=== PATIENT | male | born 1945 | race Caucasian/White ===

== ENCOUNTER 2019-04-25 10:37 | Outpatient (CLI) | payer OTHER ==
[2019-04-25 20:00] LABS: HB2 TOTAL 15.9 g/dL; HEMOGLOBIN A1C 0.63 g/dL; HEMOGLOBIN A1C % 5.8 % (4.6-6.2)
== END 2019-04-25 23:59 | disposition home or self-care (01) ==
LOC: LAB.N 10:37
PROVIDERS: ATTEND Family Medicine
DX: R73.03 Prediabetes (principal)
CPT/HCPCS: 36415; 83036

== ENCOUNTER 2019-12-09 14:17 | Outpatient (CLI) | payer MEDICARE, OTHER ==
[2019-12-09 19:33] LABS: H. PYLORIS ANTIGEN STL NEGATIVE (Negative)
== END 2019-12-09 23:59 | disposition home or self-care (01) ==
LOC: LAB.WCP 14:17
PROVIDERS: ATTEND Family Medicine
DX: K52.9 Noninfective gastroenteritis and colitis, unspecified (principal)
CPT/HCPCS: 81599; 82274; 83630; 87045; 87046; 87177; 87209; 87329; 87338; 87493

== ENCOUNTER 2019-12-11 12:32 | Outpatient (CLI) | payer OTHER, MEDICARE ==
[2019-12-11 19:16] LABS: ALBUMIN 4.2 g/dL (3.2-5.5); ALBUMIN/GLOBULIN RATIO 1.4 (1.0-2.2); BILIRUBIN,TOTAL 0.8 mg/dL (0.2-1.0); CALCIUM 9.4 mg/dL (8.5-10.3); CREATININE 0.9 mg/dL (0.6-1.2); TOTAL PROTEIN 7.2 g/dL (6.7-8.2)
== END 2019-12-11 23:59 | disposition home or self-care (01) ==
LOC: LAB.WCP 12:32
PROVIDERS: ATTEND Family Medicine
DX: K52.9 Noninfective gastroenteritis and colitis, unspecified (principal)
CPT/HCPCS: 36415; 80053

== ENCOUNTER 2020-01-09 11:40 | Outpatient (CLI) | payer MEDICARE | END 2020-01-09 23:59 | disposition home or self-care (01) | LOC: LAB.WCP 11:40 | PROVIDERS: ATTEND Physician Assistant | DX: R19.7 Diarrhea, unspecified (principal) | CPT/HCPCS: 81599; 87506 ==

== ENCOUNTER 2020-05-11 10:46 | Outpatient (CLI) | payer OTHER, MEDICARE ==
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
== END 2020-05-11 10:47 | disposition home or self-care (01) ==
LOC: SC 10:46
PROVIDERS: ATTEND Internal Medicine Pulmonary Disease
DX: G47.33 Obstructive sleep apnea (adult) (pediatric) (principal); E66.9 Obesity, unspecified; Z68.32 Body mass index [BMI] 32.0-32.9, adult
CPT/HCPCS: 99203; 99212

== ENCOUNTER 2020-09-13 07:00 | Outpatient (CLI) | payer MEDICARE, OTHER ==
--- NOTE | 2020-09-13 12:39 | XRAY Report ---
PROCEDURE: Neck Soft Tissue INDICATIONS: FOOD IN PHARYNX CAUSING OTHER INJURY TECHNIQUE: 2 views of the neck were acquired. COMPARISON: None FINDINGS: Airway: The airway appears patent. Soft tissues: Prevertebral soft tissues are normal in thickness. The epiglottis and aryepiglottic f olds appear normal. No soft tissue gas. No definitive radiopaque foreign body. Bones: No suspicious bony lesions. Visualized cervical spine is normally aligned. Multilevel degen erative changes are present within the lumbar spine. ORIF of the clavicle and humerus are noted. IMPRESSION: No definitive radiopaque foreign body. Reviewed by: Earlene Elder MD on 09/13/2020 12:37 PM PDT Approved by: Earlene Elder MD on 09/13/2020 12:37 PM PDT Station ID: [id number]
== END 2020-09-13 23:59 | disposition home or self-care (01) ==
LOC: DI.N 07:00
PROVIDERS: ATTEND Physician Assistant Medical
DX: T17.228A Food in pharynx causing other injury, initial encounter (principal)

== ENCOUNTER 2020-10-11 12:55 | Outpatient (CLI) | payer MEDICARE, OTHER | END 2020-10-11 12:56 | disposition home or self-care (01) | LOC: NS 12:55 | PROVIDERS: ATTEND Internal Medicine | DX: Z71.3 Dietary counseling and surveillance (principal); E11.9 Type 2 diabetes mellitus without complications | CPT/HCPCS: 97802 ==

== ENCOUNTER 2020-10-25 13:08 | Outpatient (CLI) | payer MEDICARE, OTHER | END 2020-10-25 13:09 | disposition home or self-care (01) | LOC: NS 13:08 | PROVIDERS: ATTEND Internal Medicine | DX: Z71.3 Dietary counseling and surveillance (principal); E11.9 Type 2 diabetes mellitus without complications | CPT/HCPCS: 97803 ==

== ENCOUNTER 2021-02-18 08:00 | Outpatient (CLI) | payer MEDICARE, OTHER ==
[2021-02-18 18:01] LABS: MICROALBUM/CREATININE RATIO,UR 3.7 ug/mg (<30.0); MICROALBUMIN,URINE 0.6 mg/dL (0-300.0)
[2021-02-18 18:09] LABS: ALT ALANINE AMINOTRANSFERASE 33 IU/L (10-60); BUN - BLOOD UREA NITROGEN 15 mg/dL (6-20); CARBON DIOXIDE - CO2 26 mmol/L (21-32); CHLORIDE 104 mmol/L (101-111); CHOLESTEROL 244 mg/dL; CREATININE 0.8 mg/dL (0.6-1.2); GFR - MDRD 94 (>89); GLUCOSE 123 mg/dL (70-100); HDL CHOLESTEROL 49 mg/dL; LDL CHOLESTEROL,CALCULATED 168 mg/dL; LDL/HDL RATIO 3.4 (<3.6); POTASSIUM 4.1 mmol/L (3.5-5.0); SODIUM 139 mmol/L (135-145); TRIGLYCERIDES 134 mg/dL; VLDL CHOLESTEROL 27 mg/dL
[2021-02-18 20:23] LABS: ESTIMATED AVERAGE GLUCOSE 140 mg/dL (70-100); HEMOGLOBIN A1c% 6.5 % (4.27-6.07)
== END 2021-02-18 23:59 | disposition home or self-care (01) ==
LOC: LAB.WCP 08:00
PROVIDERS: ATTEND Internal Medicine
DX: Z01.84 Encounter for antibody response examination (principal); E11.9 Type 2 diabetes mellitus without complications; E78.5 Hyperlipidemia, unspecified; J06.9 Acute upper respiratory infection, unspecified
CPT/HCPCS: 36415; 80048; 80061; 82043; 82570; 83036; 83721; 84460; 86769

== ENCOUNTER 2021-04-23 08:00 | Outpatient (CLI) | payer MEDICARE, OTHER ==
[2021-04-23 14:26] LABS: H. PYLORIS ANTIGEN STL NEGATIVE (Negative)
== END 2021-04-23 23:59 | disposition home or self-care (01) ==
LOC: LAB.N 08:00
PROVIDERS: ATTEND Internal Medicine
DX: K52.9 Noninfective gastroenteritis and colitis, unspecified (principal)
CPT/HCPCS: 81599; 83993; 87045; 87046; 87329; 87338; 87427; 87449; 87493

== ENCOUNTER 2021-05-07 09:54 | Outpatient (CLI) | payer MEDICARE, OTHER ==
[2021-05-07 13:41] LABS: BASOPHILS # (AUTO) 0.1 10^3/uL (0.0-0.1); BASOPHILS % (AUTO) 1.4 %; EOSINOPHILS # (AUTO) 0.2 10^3/uL (0.0-0.7); EOSINOPHILS % (AUTO) 4.3 %; HCT - HEMATOCRIT 48.9 % (42.0-52.0); HGB - HEMOGLOBIN 15.7 g/dL (14.0-18.0); LYMPHOCYTES # (AUTO) 1.2 10^3/uL (1.5-3.5); LYMPHOCYTES % (AUTO) 32.5 %; MEAN CORPUSCULAR HEMOGLOBIN 30.7 pg (27.0-31.0); MEAN CORPUSCULAR HGB CONC 32.1 g/dL (32.0-36.0); MEAN CORPUSCULAR VOLUME 95.7 fL (80.0-94.0); MEAN PLATELET VOLUME 11.2 fL (7.4-11.4); MONOCYTES # (AUTO) 0.5 10^3/uL (0.0-1.0); MONOCYTES % (AUTO) 13.3 %; NEUTROPHILS # (AUTO) 1.8 10^3/uL (1.5-6.6); PLT - PLATELET COUNT 170 10^3/uL (130-450); RED BLOOD COUNT 5.11 10^6/uL (4.70-6.10); RED CELL DISTRIBUTION WIDTH 13.8 % (12.0-15.0); WHITE BLOOD COUNT 3.7 x10^3/uL (4.8-10.8)
[2021-05-07 14:21] LABS: CREATININE,URINE 154.4 mg/dL; MICROALBUM/CREATININE RATIO,UR 3.9 ug/mg (<30.0); MICROALBUMIN,URINE 0.6 mg/dL (0-300.0)
[2021-05-07 14:23] LABS: ALBUMIN 4.2 g/dL (3.2-5.5); ALBUMIN/GLOBULIN RATIO 1.4 (1.0-2.2); ALKALINE PHOSPHATASE 81 IU/L (42-121); ALT ALANINE AMINOTRANSFERASE 25 IU/L (10-60); AST ASPARTATE AMINOTRANSFERASE 20 IU/L (10-42); BILIRUBIN,TOTAL 1.3 mg/dL (0.2-1.0); BUN - BLOOD UREA NITROGEN 14 mg/dL (6-20); CARBON DIOXIDE - CO2 26 mmol/L (21-32); CHLORIDE 104 mmol/L (101-111); CHOLESTEROL 290 mg/dL; CREATININE 0.9 mg/dL (0.6-1.2); GFR - MDRD 82 (>89); GLUCOSE 120 mg/dL (70-100); HDL CHOLESTEROL 60 mg/dL; LDL CHOLESTEROL,CALCULATED 212 mg/dL; LDL/HDL RATIO 3.5 (<3.6); POTASSIUM 4.3 mmol/L (3.5-5.0); SODIUM 139 mmol/L (135-145); TOTAL PROTEIN 7.2 g/dL (6.7-8.2); TRIGLYCERIDES 89 mg/dL; VLDL CHOLESTEROL 18 mg/dL
[2021-05-07 14:24] LABS: CHOL/HDL RATIO 4.8 (<5.0)
[2021-05-07 14:32] LABS: THYROID STIMULATING HORMONE 1.03 uIU/mL (0.34-5.60)
[2021-05-07 21:06] LABS: ESTIMATED AVERAGE GLUCOSE 114 mg/dL (70-100); HEMOGLOBIN A1c% 5.6 % (4.27-6.07)
== END 2021-05-07 09:55 | disposition home or self-care (01) ==
LOC: LAB.N 09:54
PROVIDERS: ATTEND Internal Medicine
DX: I10 Essential (primary) hypertension (principal); E11.9 Type 2 diabetes mellitus without complications; E55.9 Vitamin D deficiency, unspecified; K52.9 Noninfective gastroenteritis and colitis, unspecified; Z86.79 Personal history of other diseases of the circulatory system
CPT/HCPCS: 36415; 80053; 80061; 82043; 82306; 82570; 83036; 83516; 83721; 84443; 85025

== ENCOUNTER 2021-10-26 10:58 | Outpatient (CLI) | payer MEDICARE, OTHER ==
[2021-10-26 18:01] LABS: ALBUMIN 3.9 g/dL (3.2-5.5); ALBUMIN/GLOBULIN RATIO 1.3 (1.0-2.2); BASOPHILS # (AUTO) 0.1 10^3/uL (0.0-0.1); BILIRUBIN,TOTAL 0.7 mg/dL (0.2-1.0); CALCIUM 9.3 mg/dL (8.5-10.3); EOSINOPHILS # (AUTO) 0.3 10^3/uL (0.0-0.7); EOSINOPHILS % (AUTO) 5.3 %; HCT - HEMATOCRIT 48.2 % (42.0-52.0); HGB - HEMOGLOBIN 15.8 g/dL (14.0-18.0); LYMPHOCYTES # (AUTO) 1.5 10^3/uL (1.5-3.5); LYMPHOCYTES % (AUTO) 28.7 %; MAGNESIUM 1.9 mg/dL (1.7-2.8); MEAN CORPUSCULAR HEMOGLOBIN 30.9 pg (27.0-31.0); MEAN CORPUSCULAR HGB CONC 32.8 g/dL (32.0-36.0); MEAN CORPUSCULAR VOLUME 94.1 fL (80.0-94.0); MEAN PLATELET VOLUME 11.4 fL (7.4-11.4); MONOCYTES # (AUTO) 0.6 10^3/uL (0.0-1.0); MONOCYTES % (AUTO) 12.2 %; NEUTROPHILS # (AUTO) 2.7 10^3/uL (1.5-6.6); NEUTROPHILS % (AUTO) 52.6 %; PLT - PLATELET COUNT 162 10^3/uL (130-450); POTASSIUM 4.3 mmol/L (3.5-5.0); RED BLOOD COUNT 5.12 10^6/uL (4.70-6.10); RED CELL DISTRIBUTION WIDTH 12.9 % (12.0-15.0); TOTAL PROTEIN 6.8 g/dL (6.7-8.2); WHITE BLOOD COUNT 5.1 x10^3/uL (4.8-10.8)
[2021-10-26 18:20] LABS: THYROID STIMULATING HORMONE 0.65 uIU/mL (0.34-5.60)
[2021-10-26 18:21] LABS: FREE T3 3.92 pg/mL (2.5-3.9)
[2021-10-26 18:22] LABS: FREE T4 (FREE THYROXINE) 0.86 ng/dL (0.58-1.64)
== END 2021-10-26 10:59 | disposition home or self-care (01) ==
LOC: LAB.N 10:58
PROVIDERS: ATTEND Physician Assistant
DX: I48.0 Paroxysmal atrial fibrillation (principal); E03.9 Hypothyroidism, unspecified
CPT/HCPCS: 36415; 80053; 83735; 84439; 84443; 84481; 85025

== ENCOUNTER 2022-02-14 13:12 | Outpatient (CLI) | payer MEDICARE, OTHER ==
[2022-02-14 18:55] LABS: CREATININE,URINE 127.5 mg/dL
[2022-02-14 18:56] LABS: MICROALBUMIN,URINE < 0.2 mg/dL (0-300.0)
== END 2022-02-14 13:13 | disposition home or self-care (01) ==
LOC: LAB.N 13:12
PROVIDERS: ATTEND Emergency Medicine
DX: I10 Essential (primary) hypertension (principal); I25.84 Coronary atherosclerosis due to calcified coronary lesion
CPT/HCPCS: 36415; 81599; 82043; 82542; 82570; 83698; 83876; 85384; 86141

== ENCOUNTER 2022-04-12 13:26 | Outpatient (CLI) | payer MEDICARE, OTHER ==
--- NOTE | 2022-04-12 18:22 | XRAY Report ---
PROCEDURE: Finger(s) RT INDICATIONS: R 3RD DIGIT PX TECHNIQUE: AP hand, 2 views of the right third finger(s) acquired. COMPARISON: None FINDINGS: Bones: No fractures or dislocations. No suspicious bony lesions. Soft tissues: No suspicious soft tissue calcifications. IMPRESSION: Normal right third digit. Reviewed by: Sis Chen MD on 04/12/2022 5:21 PM AKMARIMAR Approved by: Sis Chen MD on 04/12/2022 5:21 PM AKMARIMAR Station ID: [id number]
== END 2022-04-12 23:59 | disposition home or self-care (01) ==
LOC: DI.N 13:26
PROVIDERS: ATTEND Nurse Practitioner
DX: M79.644 Pain in right finger(s) (principal)

== ENCOUNTER 2022-05-29 14:16 | Outpatient (CLI) | payer MEDICARE, OTHER ==
[2022-05-29 18:09] LABS: BASOPHILS # (AUTO) 0.1 10^3/uL (0.0-0.1); BASOPHILS % (AUTO) 0.9 %; EOSINOPHILS # (AUTO) 0.2 10^3/uL (0.0-0.7); EOSINOPHILS % (AUTO) 3.4 %; HCT - HEMATOCRIT 49.4 % (42.0-52.0); LYMPHOCYTES # (AUTO) 1.4 10^3/uL (1.5-3.5); LYMPHOCYTES % (AUTO) 26.6 %; MEAN CORPUSCULAR HEMOGLOBIN 30.5 pg (27.0-31.0); MEAN CORPUSCULAR HGB CONC 32.4 g/dL (32.0-36.0); MEAN CORPUSCULAR VOLUME 94.3 fL (80.0-94.0); MEAN PLATELET VOLUME 11.4 fL (7.4-11.4); MONOCYTES # (AUTO) 0.6 10^3/uL (0.0-1.0); MONOCYTES % (AUTO) 11.1 %; NEUTROPHILS # (AUTO) 3.1 10^3/uL (1.5-6.6); NEUTROPHILS % (AUTO) 57.8 %; PLT - PLATELET COUNT 177 10^3/uL (130-450); RED BLOOD COUNT 5.24 10^6/uL (4.70-6.10); RED CELL DISTRIBUTION WIDTH 13.1 % (12.0-15.0); WHITE BLOOD COUNT 5.3 x10^3/uL (4.8-10.8)
[2022-05-29 18:29] LABS: CREATININE,URINE 129.9 mg/dL; MICROALBUM/CREATININE RATIO,UR 2.3 ug/mg (<30.0); MICROALBUMIN,URINE 0.3 mg/dL (0-300.0)
[2022-05-29 18:32] LABS: ALBUMIN 4.3 g/dL (3.2-5.5); ALBUMIN/GLOBULIN RATIO 1.5 (1.0-2.2); ALKALINE PHOSPHATASE 82 IU/L (42-121); ALT ALANINE AMINOTRANSFERASE 22 IU/L (10-60); AST ASPARTATE AMINOTRANSFERASE 20 IU/L (10-42); BILIRUBIN,TOTAL 0.9 mg/dL (0.2-1.0); BUN - BLOOD UREA NITROGEN 16 mg/dL (6-20); CALCIUM 9.5 mg/dL (8.5-10.3); CARBON DIOXIDE - CO2 27 mmol/L (21-32); CHLORIDE 102 mmol/L (101-111); CHOL/HDL RATIO 4.9 (<5.0); CHOLESTEROL 261 mg/dL; CREATININE 0.9 mg/dL (0.6-1.2); GFR - MDRD 82 (>89); GLUCOSE 94 mg/dL (70-100); HDL CHOLESTEROL 53 mg/dL; LDL CHOLESTEROL,CALCULATED 182 mg/dL; LDL/HDL RATIO 3.4 (<3.6); POTASSIUM 4.1 mmol/L (3.5-5.0); SODIUM 138 mmol/L (135-145); TOTAL PROTEIN 7.2 g/dL (6.7-8.2); TRIGLYCERIDES 128 mg/dL; VLDL CHOLESTEROL 26 mg/dL
[2022-05-29 18:38] LABS: THYROID STIMULATING HORMONE 0.36 uIU/mL (0.34-5.60)
[2022-05-29 21:12] LABS: ESTIMATED AVERAGE GLUCOSE 123 mg/dL (70-100); HEMOGLOBIN A1c% 5.9 % (4.27-6.07)
== END 2022-05-29 14:17 | disposition home or self-care (01) ==
LOC: LAB.N 14:16
PROVIDERS: ATTEND Internal Medicine
DX: E78.5 Hyperlipidemia, unspecified (principal); E55.9 Vitamin D deficiency, unspecified; E11.9 Type 2 diabetes mellitus without complications; E03.9 Hypothyroidism, unspecified; I10 Essential (primary) hypertension
CPT/HCPCS: 36415; 80053; 80061; 82043; 82306; 82570; 83036; 83721; 84443; 85025

== ENCOUNTER 2022-09-18 12:49 | Outpatient (CLI) | payer MEDICARE, OTHER ==
[2022-09-18 17:58] LABS: CALCIUM 9.3 mg/dL (8.5-10.3); POTASSIUM 4.2 mmol/L (3.5-5.0)
[2022-09-18 21:45] LABS: ESTIMATED AVERAGE GLUCOSE 120 mg/dL (70-100); HEMOGLOBIN A1c% 5.8 % (4.27-6.07)
== END 2022-09-18 12:50 | disposition home or self-care (01) ==
LOC: LAB.F 12:49
PROVIDERS: ATTEND Internal Medicine
DX: E11.9 Type 2 diabetes mellitus without complications (principal)
CPT/HCPCS: 36415; 80048; 83036

== ENCOUNTER 2022-09-19 17:15 | Outpatient (CLI) | payer MEDICARE, OTHER ==
--- NOTE | 2022-09-20 11:02 | XRAY Report ---
PROCEDURE: Ribs Bilat w/Chest 4 View INDICATIONS: ANTERIOR CHEST WALL PAIN TECHNIQUE: 4 views of the bilateral ribs were acquired, along with a single view chest. COMPARISON: None FINDINGS: Surgical changes and devices: Left clavicular ORIF is present. Hardware is intact without evidence of hardware fracture or periprosthetic lucency to suggest loosening. Bones and chest wall: No fractures or dislocations. No suspicious bony lesions. Overlying soft tis sues appear unremarkable. Lungs and pleura: No pleural effusions or pneumothorax. Lungs appear clear. Mediastinum: Mediastinal contours appear normal. Heart size is normal. IMPRESSION: No visualized acute fracture or dislocation. However, occult injury cannot be excluded. Recommend mary rt interval imaging follow-up in 7-10 days as clinically indicated for additional evaluation. Reviewed by: Earlene Elder MD on 09/20/2022 11:01 AM PDT Approved by: Earlene Elder MD on 09/20/2022 11:01 AM PDT Station ID: [id number]
== END 2022-09-19 17:16 | disposition home or self-care (01) ==
LOC: DI 17:15
PROVIDERS: ATTEND Physician Assistant Medical
DX: R07.89 Other chest pain (principal)

== ENCOUNTER 2022-10-20 14:07 | Outpatient (CLI) | payer MEDICARE, OTHER ==
--- NOTE | 2022-10-20 17:13 | XRAY Report ---
PROCEDURE: Foot 3 View LT INDICATIONS: LT FOOT. Laceration. TECHNIQUE: 3 views of the foot were acquired. COMPARISON: None. FINDINGS: Bones: No acute fracture or dislocation identified. Degenerative changes at the first MTP joint and scattered IP joints. Soft tissues: Thin, approximately 4 mm radiopaque foreign body within the plantar soft tissues, like ly near the base of the second digit. IMPRESSION: No acute bony abnormality. If pain persists with conservative management, consider repeat radiographs in 10-14 days or cross-sectional imaging. Approximately 4 mm radiopaque foreign body at the plantar soft tissues likely at the base of the seco nd digit. Reviewed by: Toñito Keys MD on 10/20/2022 5:12 PM PDT Approved by: Toñito Keys MD on 10/20/2022 5:12 PM PDT Station ID: [id number]
== END 2022-10-20 14:08 | disposition home or self-care (01) ==
LOC: DI 14:07
PROVIDERS: ATTEND Family Medicine
DX: S91.322A Laceration with foreign body, left foot, initial encounter (principal)

== ENCOUNTER 2022-10-30 10:15 | Outpatient (CLI) | payer MEDICARE, OTHER ==
--- NOTE | 2022-10-30 10:57 | XRAY Report ---
PROCEDURE: Foot 3 View RT INDICATIONS: CONTUSION OF RIGHT FOOT TECHNIQUE: 3 views of the foot were acquired. COMPARISON: None. FINDINGS: Bones: There is a mildly displaced and angulated fracture of the proximal aspect of the proximal pha lanx of the second digit. Periarticular osteophyte formation at the first metatarsophalangeal joint a s well as the interphalangeal joints of the digits. No suspicious bony lesions. Soft tissues: No suspicious soft tissue calcifications or masses. IMPRESSION: Second digit fracture. Reviewed by: Jennie Urbina MD on 10/30/2022 10:55 AM PDT Approved by: Jennie Urbina MD on 10/30/2022 10:55 AM PDT Station ID: [id number]
== END 2022-10-30 23:59 | disposition home or self-care (01) ==
LOC: DI.N 10:15
PROVIDERS: ATTEND Family Medicine
DX: S92.511A Displaced fracture of proximal phalanx of right lesser toe(s), initial encounter for closed fracture (principal)

== ENCOUNTER 2022-12-29 10:00 | Outpatient (CLI) | payer MEDICARE, OTHER ==
[2022-12-29 18:00] LABS: BASOPHILS # (AUTO) 0.1 10^3/uL (0.0-0.1); BASOPHILS % (AUTO) 0.9 %; EOSINOPHILS # (AUTO) 0.5 10^3/uL (0.0-0.7); EOSINOPHILS % (AUTO) 9.1 %; HCT - HEMATOCRIT 46.9 % (42.0-52.0); HGB - HEMOGLOBIN 15.3 g/dL (14.0-18.0); LYMPHOCYTES # (AUTO) 1.4 10^3/uL (1.5-3.5); LYMPHOCYTES % (AUTO) 26.3 %; MEAN CORPUSCULAR HEMOGLOBIN 30.4 pg (27.0-31.0); MEAN CORPUSCULAR HGB CONC 32.6 g/dL (32.0-36.0); MEAN CORPUSCULAR VOLUME 93.2 fL (80.0-94.0); MEAN PLATELET VOLUME 11.4 fL (7.4-11.4); MONOCYTES # (AUTO) 0.6 10^3/uL (0.0-1.0); MONOCYTES % (AUTO) 11.8 %; NEUTROPHILS # (AUTO) 2.8 10^3/uL (1.5-6.6); NEUTROPHILS % (AUTO) 51.7 %; PLT - PLATELET COUNT 166 10^3/uL (130-450); RED BLOOD COUNT 5.03 10^6/uL (4.70-6.10); RED CELL DISTRIBUTION WIDTH 13.7 % (12.0-15.0); WHITE BLOOD COUNT 5.4 x10^3/uL (4.8-10.8)
[2022-12-29 18:16] LABS: ALBUMIN/GLOBULIN RATIO 1.2 (1.0-2.2); ALKALINE PHOSPHATASE 77 IU/L (42-121); ALT ALANINE AMINOTRANSFERASE 27 IU/L (10-60); AST ASPARTATE AMINOTRANSFERASE 21 IU/L (10-42); BILIRUBIN,TOTAL 0.7 mg/dL (0.2-1.0); BUN - BLOOD UREA NITROGEN 17 mg/dL (6-20); CALCIUM 9.2 mg/dL (8.5-10.3); CARBON DIOXIDE - CO2 27 mmol/L (21-32); CHLORIDE 107 mmol/L (101-111); CHOL/HDL RATIO 4.1 (<5.0); CHOLESTEROL 259 mg/dL; CREATININE 0.9 mg/dL (0.6-1.2); GFR - MDRD 82 (>89); GLUCOSE 116 mg/dL (70-100); HDL CHOLESTEROL 63 mg/dL; LDL CHOLESTEROL,CALCULATED 175 mg/dL; LDL/HDL RATIO 2.8 (<3.6); POTASSIUM 4.2 mmol/L (3.5-5.0); SODIUM 140 mmol/L (135-145); TOTAL PROTEIN 7.3 g/dL (6.7-8.2); TRIGLYCERIDES 105 mg/dL; VLDL CHOLESTEROL 21 mg/dL
[2022-12-29 20:53] LABS: ESTIMATED AVERAGE GLUCOSE 120 mg/dL (70-100); HEMOGLOBIN A1c% 5.8 % (4.27-6.07)
== END 2022-12-29 10:01 | disposition home or self-care (01) ==
LOC: LAB.N 10:00
DX: I10 Essential (primary) hypertension (principal); E03.9 Hypothyroidism, unspecified; Z12.5 Encounter for screening for malignant neoplasm of prostate; E78.2 Mixed hyperlipidemia; R73.03 Prediabetes
CPT/HCPCS: 36415; 80053; 80061; 83036; 84443; 85025; G0103; 83721; 84153

== ENCOUNTER 2023-05-17 11:38 | Outpatient (CLI) | payer MEDICARE, OTHER ==
[2023-05-17 18:15] LABS: BUN - BLOOD UREA NITROGEN 15 mg/dL (6-20); CALCIUM 9.5 mg/dL (8.5-10.3); CARBON DIOXIDE - CO2 28 mmol/L (21-32); CHLORIDE 104 mmol/L (101-111); CHOL/HDL RATIO 4.1 (<5.0); CHOLESTEROL 248 mg/dL; CREATININE 0.9 mg/dL (0.6-1.3); GFR - MDRD 82 (>89); GLUCOSE 117 mg/dL (74-104); HDL CHOLESTEROL 60 mg/dL; LDL CHOLESTEROL,CALCULATED 156 mg/dL; LDL/HDL RATIO 2.6 (<3.6); POTASSIUM 4.1 mmol/L (3.5-4.5); SODIUM 138 mmol/L (135-145); TRIGLYCERIDES 158 mg/dL (48-352); VLDL CHOLESTEROL 32 mg/dL
[2023-05-17 18:34] LABS: THYROID STIMULATING HORMONE 0.72 uIU/mL (0.34-5.60)
[2023-05-17 21:18] LABS: ESTIMATED AVERAGE GLUCOSE 128 mg/dL (70-100); HEMOGLOBIN A1c% 6.1 % (4.27-6.07)
== END 2023-05-17 11:39 | disposition home or self-care (01) ==
LOC: LAB.N 11:38
PROVIDERS: ATTEND Internal Medicine
DX: E03.9 Hypothyroidism, unspecified (principal); E11.9 Type 2 diabetes mellitus without complications; E78.5 Hyperlipidemia, unspecified
CPT/HCPCS: 36415; 80048; 80061; 83036; 83721; 84439; 84443

== ENCOUNTER 2023-09-14 11:40 | Outpatient (CLI) | payer MEDICARE, OTHER ==
[2023-09-14 18:09] LABS: BASOPHILS # (AUTO) 0.1 10^3/uL (0.0-0.1); BASOPHILS % (AUTO) 1.1 %; EOSINOPHILS # (AUTO) 0.2 10^3/uL (0.0-0.7); EOSINOPHILS % (AUTO) 3.9 %; HCT - HEMATOCRIT 51.6 % (42.0-52.0); HGB - HEMOGLOBIN 16.2 g/dL (14.0-18.0); LYMPHOCYTES # (AUTO) 1.1 10^3/uL (1.5-3.5); LYMPHOCYTES % (AUTO) 24.1 %; MEAN CORPUSCULAR HEMOGLOBIN 29.7 pg (27.0-31.0); MEAN CORPUSCULAR HGB CONC 31.4 g/dL (32.0-36.0); MEAN CORPUSCULAR VOLUME 94.5 fL (80.0-94.0); MEAN PLATELET VOLUME 11.4 fL (7.4-11.4); MONOCYTES # (AUTO) 0.5 10^3/uL (0.0-1.0); MONOCYTES % (AUTO) 12.3 %; NEUTROPHILS # (AUTO) 2.6 10^3/uL (1.5-6.6); NEUTROPHILS % (AUTO) 58.6 %; PLT - PLATELET COUNT 188 10^3/uL (130-450); RED BLOOD COUNT 5.46 10^6/uL (4.70-6.10); RED CELL DISTRIBUTION WIDTH 13.3 % (12.0-15.0); WHITE BLOOD COUNT 4.4 x10^3/uL (4.8-10.8)
[2023-09-14 18:42] LABS: ESTIMATED AVERAGE GLUCOSE 131 mg/dL (70-100); HEMOGLOBIN A1c% 6.2 % (4.27-6.07)
[2023-09-14 18:59] LABS: ALBUMIN 4.2 g/dL (3.2-5.5); ALBUMIN/GLOBULIN RATIO 1.6 (1.0-2.2); ALKALINE PHOSPHATASE 78 IU/L (42-121); ALT ALANINE AMINOTRANSFERASE 32 IU/L (10-60); AST ASPARTATE AMINOTRANSFERASE 22 IU/L (10-42); BILIRUBIN,TOTAL 0.6 mg/dL (0.2-1.0); BUN - BLOOD UREA NITROGEN 16 mg/dL (6-20); CALCIUM 9.9 mg/dL (8.5-10.3); CARBON DIOXIDE - CO2 29 mmol/L (21-32); CHLORIDE 105 mmol/L (101-111); CHOL/HDL RATIO 4.6 (<5.0); CHOLESTEROL 232 mg/dL; CREATININE 1.1 mg/dL (0.6-1.3); GFR - MDRD 65 (>89); GLUCOSE 118 mg/dL (74-104); HDL CHOLESTEROL 50 mg/dL; LDL CHOLESTEROL,CALCULATED 156 mg/dL; LDL/HDL RATIO 3.1 (<3.6); POTASSIUM 4.2 mmol/L (3.5-4.5); SODIUM 139 mmol/L (135-145); TOTAL PROTEIN 6.9 g/dL (6.4-8.9); TRIGLYCERIDES 132 mg/dL (48-352); VLDL CHOLESTEROL 26 mg/dL
[2023-09-14 19:01] LABS: CREATININE,URINE 136.7 mg/dL; MICROALBUM/CREATININE RATIO,UR 10.2 ug/mg (<30.0); MICROALBUMIN,URINE 1.4 mg/dL
[2023-09-14 19:06] LABS: THYROID STIMULATING HORMONE 0.62 uIU/mL (0.34-5.60)
== END 2023-09-14 11:41 | disposition home or self-care (01) ==
LOC: LAB.N 11:40
PROVIDERS: ATTEND Internal Medicine
DX: E11.9 Type 2 diabetes mellitus without complications (principal); E78.5 Hyperlipidemia, unspecified; E55.9 Vitamin D deficiency, unspecified; E03.9 Hypothyroidism, unspecified
CPT/HCPCS: 36415; 80053; 80061; 82043; 82306; 82570; 83036; 83721; 84443; 85025

== ENCOUNTER 2023-09-28 10:59 | Outpatient (CLI) | payer MEDICARE, OTHER ==
[2023-09-28 13:02] LABS: PROLACTIN 4.83 ng/mL
== END 2023-09-28 11:00 | disposition home or self-care (01) ==
LOC: LAB 10:59
PROVIDERS: ATTEND Internal Medicine
DX: E29.1 Testicular hypofunction (principal)
CPT/HCPCS: 36415; 83002; 84146; 84403

== ENCOUNTER 2023-12-27 11:05 | Outpatient (CLI) | payer MEDICARE, OTHER ==
[2023-12-27 17:35] LABS: BASOPHILS # (AUTO) 0.1 10^3/uL (0.0-0.1); BASOPHILS % (AUTO) 0.9 %; EOSINOPHILS # (AUTO) 0.4 10^3/uL (0.0-0.7); EOSINOPHILS % (AUTO) 6.9 %; HCT - HEMATOCRIT 48.6 % (42.0-52.0); HGB - HEMOGLOBIN 15.5 g/dL (14.0-18.0); LYMPHOCYTES # (AUTO) 1.2 10^3/uL (1.5-3.5); LYMPHOCYTES % (AUTO) 21.5 %; MEAN CORPUSCULAR HEMOGLOBIN 30.4 pg (27.0-31.0); MEAN CORPUSCULAR HGB CONC 31.9 g/dL (32.0-36.0); MEAN CORPUSCULAR VOLUME 95.3 fL (80.0-94.0); MEAN PLATELET VOLUME 11.6 fL (7.4-11.4); MONOCYTES # (AUTO) 0.7 10^3/uL (0.0-1.0); MONOCYTES % (AUTO) 11.8 %; NEUTROPHILS # (AUTO) 3.3 10^3/uL (1.5-6.6); NEUTROPHILS % (AUTO) 58.5 %; PLT - PLATELET COUNT 168 10^3/uL (130-450); RED CELL DISTRIBUTION WIDTH 13.8 % (12.0-15.0); WHITE BLOOD COUNT 5.7 x10^3/uL (4.8-10.8)
[2023-12-27 17:45] LABS: ALBUMIN 4.1 g/dL (3.2-5.5); ALKALINE PHOSPHATASE 73 IU/L (42-121); ALT ALANINE AMINOTRANSFERASE 36 IU/L (10-60); AST ASPARTATE AMINOTRANSFERASE 20 IU/L (10-42); BILIRUBIN,TOTAL 0.6 mg/dL (0.2-1.0); BUN - BLOOD UREA NITROGEN 17 mg/dL (6-20); CALCIUM 9.6 mg/dL (8.5-10.3); CARBON DIOXIDE - CO2 28 mmol/L (21-32); CHLORIDE 108 mmol/L (101-111); CHOL/HDL RATIO 5.4 (<5.0); CHOLESTEROL 241 mg/dL; CREATININE 1.1 mg/dL (0.6-1.3); GFR - MDRD 65 (>89); GLUCOSE 128 mg/dL (74-104); HDL CHOLESTEROL 45 mg/dL; LDL CHOLESTEROL,CALCULATED 156 mg/dL; LDL/HDL RATIO 3.5 (<3.6); POTASSIUM 4.5 mmol/L (3.5-4.5); SODIUM 141 mmol/L (135-145); TOTAL PROTEIN 6.2 g/dL (6.4-8.9); TRIGLYCERIDES 200 mg/dL; VLDL CHOLESTEROL 40 mg/dL
[2023-12-27 18:01] LABS: THYROID STIMULATING HORMONE 1.64 uIU/mL (0.34-5.60)
[2023-12-27 22:54] LABS: ESTIMATED AVERAGE GLUCOSE 131 mg/dL (70-100); HEMOGLOBIN A1c% 6.2 % (4.27-6.07)
== END 2023-12-27 11:06 | disposition home or self-care (01) ==
LOC: LAB.N 11:05
DX: E78.2 Mixed hyperlipidemia (principal); E03.9 Hypothyroidism, unspecified; R73.03 Prediabetes; I10 Essential (primary) hypertension
CPT/HCPCS: 36415; 80053; 80061; 83036; 83721; 84443; 85025